=== PATIENT | male | born 1980 | race Caucasian/White ===

== ENCOUNTER 2017-09-14 19:40 | Emergency (ER) | payer MEDICAID ==
[~2017-09-14] VITALS: Ht 177.8 cm; Wt 74.8 kg
[2017-09-14 23:00] VITALS: BP 140/95
[2017-09-14] MEDS ORDERED: KETOROLAC TROMETH 60MG/2ML VIAL IM ONE (23:30)
== END 2017-09-14 23:32 | disposition home or self-care (01) ==
LOC: ER 19:40 → EDBD 19:40 → ER 23:31
DX: R07.81 Pleurodynia (principal); I10 Essential (primary) hypertension; F17.210 Nicotine dependence, cigarettes, uncomplicated; V49.09XA Driver injured in collision with other motor vehicles in nontraffic accident, initial encounter; W22.11XA Striking against or struck by driver side automobile airbag, initial encounter; Y93.89 Activity, other specified; Y92.410 Unspecified street and highway as the place of occurrence of the external cause; Y99.8 Other external cause status
CPT/HCPCS: 71250; 72125; 72131; 93005